=== PATIENT | female | born 1935 | race Caucasian/White ===

== ENCOUNTER 2017-06-06 18:50 | Inpatient (IN) | payer MEDICARE, OTHER ==
[~2017-06-06] VITALS: Ht 162.6 cm; Wt 58.2 kg
[~2017-06-06 18:50] MED LIST: ASPIRIN 81 MG TAB ONE; HEPARIN 5,000 UNIT/0.5 ML VIAL ONE
[2017-06-06 19:42] LABS: ADD SCAN DIFF NO
[2017-06-06 19:43] LABS: BASOPHIL # 0.1 10^3/ul (0.0-0.1); BASOPHILS % 0.7 % (0.0-2.0); EOSINOPHILS # 0.2 10^3/ul (0.0-0.5); EOSINOPHILS % 2.2 % (0.0-7.0); HEMATOCRIT 40.2 % (37.0-47.0); HEMOGLOBIN 13.3 g/dl (12.0-16.0); LYMPHOCYTES # 2.3 10^3/ul (0.8-2.9); LYMPHOCYTES % 27.5 % (15.0-51.0); MEAN CORPUSCULAR HEMOGLOBIN 31.9 pg (29.0-33.0); MEAN CORPUSCULAR HGB CONC 33.1 g/dl (32.0-37.0); MEAN CORPUSCULAR VOLUME 96.4 fl (82.0-101.0); MEAN PLATELET VOLUME 10.4 fl (7.4-10.4); MONOCYTE # 0.7 10^3/ul (0.3-0.9); MONOCYTES % 8.8 % (0.0-11.0); NEUTROPHIL # 4.9 10^3/ul (1.6-7.5); NEUTROPHILS % 60.3 % (39.0-77.0); PLATELET COUNT 220 10^3/UL (140-415); RED BLOOD COUNT 4.17 10^6/ul (4.20-5.40); RED CELL DISTRIBUTION WIDTH 12.5 % (11.5-14.5); WHITE BLOOD COUNT 8.2 10^3/ul (4.8-10.8)
[2017-06-06] MEDS: NITROGLYCERIN (SL) 0.4 MG TAB SL PRN ×2 (19:45→20:17)
[2017-06-06 20:01] LABS: INR 1.08; PT RATIO 1.1
[2017-06-06 20:02] LABS: PARTIAL THROMBOPLASTIN TIME 35.8 Sec (25.0-35.0)
[2017-06-06 20:05] LABS: ANION GAP 12 (8-16); BLOOD UREA NITROGEN 20 mg/dl (7-20); CALCIUM 9.4 mg/dl (8.4-10.2); CARBON DIOXIDE 28 mmol/L (21-31); CHLORIDE 99 mmol/L (97-110); GLUCOSE 105 mg/dl (70-220); SODIUM 135 mmol/L (135-144)
[2017-06-06 20:18] LABS: TROPONIN-I < 0.012 ng/ml (0.00-0.12)
--- NOTE | 2017-06-06 20:19 | ERA ---
ER Documentation Chief Complaint Date/Time DATE: 06/06/17 TIME: 20:17 Chief Complaint SIMI WAYNE, nonradiating CP from home,received 1 spray nitro in the field HPI This is an 81-year-old female who presents to the emergency room for evaluation of chest pain. The patient states that she has had chest pain on and off for the past 2 days. She states it is in the center of her chest with no radiation. The patient did receive 1 spray of nitroglycerin sublingual in the field with mild relief of her symptoms. She does say she has high blood pressure, and high cholesterol and is still. She denies any relieving factors for her pain and came to the ER for evaluation. ROS All systems reviewed and are negative except as per history of present illness. Allergies Allergies: Coded Allergies: Iodine and Iodide Containing Produc (Verified Allergy, Unknown, 06/06/17) NSAIDS (Non-Steroidal Anti-Inflamma (Verified Allergy, Unknown, 11/07/07) Penicillins (Verified Allergy, Unknown, 11/07/07) Sulfa (Sulfonamide Antibiotics) (Verified Allergy, Unknown, 11/07/07) aspirin (Verified Allergy, Unknown, 06/06/17) cyclobenzaprine (Verified Allergy, Unknown, 11/07/07) ibuprofen (Verified Allergy, Unknown, 11/07/07) PMhx/Soc History of Surgery: Yes (BACK 2006,) Anesthesia Reaction: No Hx Neurological Disorder: No Hx Respiratory Disorders: No Hx Cardiac Disorders: Yes (HTN) Hx Psychiatric Problems: No Hx Miscellaneous Medical Probl: No Hx Alcohol Use: No Hx Substance Use: No Hx Tobacco Use: Yes (1 PACK AND HALF A DAY) Smoking Status: Current every day smoker Physical Exam Vitals Vital Signs Date Time Temp Pulse Resp B/P Pulse Ox O2 Delivery O2 Flow Rate FiO2 06/06/17 19:59 Nasal Cannula 2 06/06/17 19:59 18 152/82 97 Nasal Cannula 2.0 06/06/17 18:57 97.7 69 18 139/77 95 Physical Exam INITIAL VITAL SIGNS: Reviewed by me GENERAL: The patient is well developed and appropriate for usual state of health in no apparent distress HEENT: Pupils equal, round, and reactive to light. EOMI. There is no scleral icterus. NECK: C-spine is soft and supple, there is no meningismus. There is no cervical lymphadenopathy. LUNGS: Clear to auscultation bilaterally. There are no rales, wheezes or rhonchi. HEART: Regular rate and rhythm, no murmurs, clicks, rubs or gallops. ABDOMEN: Soft, non-tender, non-distended. There are bowel sounds in all four quadrants. No rebound or guarding. EXTREMITIES: There is no peripheral cyanosis or edema. No focal swelling or erythema. NEUROLOGICAL: The patient moves all four extremities with 5/5 strength. Cranial nerves II - XII are intact. Normal gait. Alert and oriented SKIN: There is no apparent rash or petechiae. HEME/LYMPHATIC: There is no evidence of excessive bruising or lymphedema. PSYCHIATRIC: The patient does not appear anxious or depressed. Result Diagram: 06/06/17192906/06/171929 Results 24 hrs Laboratory Tests Test 06/06/17 19:30 White Blood Count 8.210^3/ul Red Blood Count 4.1710^6/ul Hemoglobin 13.3g/dl Hematocrit 40.2% Mean Corpuscular Volume 96.4fl Mean Corpuscular Hemoglobin 31.9pg Mean Corpuscular Hemoglobin Concent 33.1g/dl Red Cell Distribution Width 12.5% Platelet Count 45790^3/UL Mean Platelet Volume 10.4fl Neutrophils % 60.3% Lymphocytes % 27.5% Monocytes % 8.8% Eosinophils % 2.2% Basophils % 0.7% Nucleated Red Blood Cells % 0.0/100WBC Neutrophils # 4.910^3/ul Lymphocytes # 2.310^3/ul Monocytes # 0.710^3/ul Eosinophils # 0.210^3/ul Basophils # 0.110^3/ul Nucleated Red Blood Cells # 0.010^3/ul Prothrombin Time 14.0Sec Prothrombin Time Ratio 1.1 INR International Normalized Ratio 1.08 Activated Partial Thromboplast Time 35.8Sec Sodium Level 135mmol/L Potassium Level 4.0mmol/L Chloride Level 99mmol/L Carbon Dioxide Level 28mmol/L Anion Gap 12 Blood Urea Nitrogen 20mg/dl Creatinine 0.70mg/dl Glucose Level 105mg/dl Calcium Level 9.4mg/dl Troponin I Pending Current Medications Medications (Trade) Dose Ordered Sig/Ameena Route PRN Reason Start Time Stop Time Status Last Admin Dose Admin Nitroglycerin (Nitroglycerin (Sl Tab) 0.4 Mg) 1 tab Q5M UP TO 3 DOSES PRN SL CHEST PAIN 06/06/17 19:30 06/06/17 19:45 Procedures/MDM EKG: Rate/Rhythm: [Normal Sinus Rhythm] QRS, ST, T-waves: [No changes consistent w/ acute ischemia] Impression: [No evidence of ischemia or arrhythmia] EKG: #2 Rate/Rhythm: [Normal Sinus Rhythm] QRS, ST, T-waves: [No changes consistent w/ acute ischemia] Impression: [No evidence of ischemia or arrhythmia] Chest X-ray 1V Interpreted by me: Soft Tissue: No acute abnormalities Bones: No acute abnormalities Mediastinum/Cardiac Silhouette/Lungs: [No acute abnormalities] This 81-year-old female presents to the ER for evaluation of chest pain. When I evaluated this patient she was hemodynamically stable, not hypoxic. I did obtain lab work including an EKG and a troponin. Chest x-ray is clear. First troponin is negative. Given this patient's age and risk factors she will be placed in for admission at this time for serial troponins and possible stress test. The patient will be admitted under the care of panel physician Dr. Lester. Smoking Cessation Therapy: Pt. was lectured for greater than 3 minutes on the health risks of continued smoking and the benefits of cessation. Departure Diagnosis: Primary Impression: Chest pain Additional Impression: Tobacco abuse Condition: Stable JESUSERA ALCANTARA Jun 06, 2017 20:19
--- NOTE | 2017-06-06 20:22 | RADRPT ---
PROCEDURE: XR Chest. CLINICAL INDICATION: Chest pain. TECHNIQUE: Single frontal view of the chest. COMPARISON: 11/07/2007. FINDINGS: Cardiomegaly. Mild atherosclerotic calcifications in the thoracic aorta. The lungs are clear. No si gns of pleural fluid or pneumothorax are seen. The osseous structures and soft tissues are unremarka ble. IMPRESSION: No evidence for active cardiopulmonary disease. RPTAT: [facility] Physician Moe Date Time Electronically viewed and signed by Baljeet Hale Physician on 06/06/2017 20:22 RS/
[2017-06-06] MEDS ORDERED: morphine 2 MG INJ IV ONE (20:30)
[2017-06-06] MEDS ORDERED: ONDANSETRON 4 MG INJ IV PRN ×2 (20:30→22:00)
[2017-06-06] MEDS ORDERED: ACETAMINOPHEN 325 MG TAB PO PRN ×2 (20:30→22:00)
[2017-06-06] MEDS ORDERED: SOD CHLORIDE 0.9% 1,000 ML IV STA (20:31)
[2017-06-06] MEDS ORDERED: AMLO2.5T78 PO (20:39)
[2017-06-06] MEDS ORDERED: LABE100T3 PO (20:41)
[2017-06-06] MEDS ORDERED: LEVO100T87 PO (20:41)
[2017-06-06] MEDS ORDERED: MIRT15TA5 PO (20:42)
[2017-06-06] MEDS ORDERED: SOD CHLORIDE 0.9% 500 ML ONE (20:56)
[2017-06-06] MEDS ORDERED: IOHEXOL 350MG/ML 50 ML BTL ONE (20:56)
[2017-06-06] MEDS ORDERED: IODIXANOL LOCM 100 ML BTL ONE (20:56)
[2017-06-06] MEDS ORDERED: NITROGLYCERIN (IC) 100 MCG/ML INJ ONE (20:56)
[2017-06-06] MEDS ORDERED: LIDOCAINE 1% (MDV) 20 ML INJ ONE (20:56)
[2017-06-06] MEDS ORDERED: FENTAnyl 50 MCG/ML VIAL ONE (20:56)
[2017-06-06] MEDS ORDERED: MIDAZOLAM 1 MG/ML 2 ML INJ ONE (20:57)
[2017-06-06] MEDS ORDERED: HEPARIN 1000 UNITS/ML 10 ML INJ IV ONE (21:00)
[2017-06-06] MEDS ORDERED: ASPIRIN 325 MG TAB PO ONE (21:00)
[2017-06-06] MEDS ORDERED: METHYLPREDNISOLONE 125 MG INJ ONE (21:06)
[2017-06-06] MEDS ORDERED: DIPHENHYDRAMINE 50 MG INJ ONE (21:06)
--- NOTE | 2017-06-06 21:11 | CONS ---
Date/Time of Note Date/Time of Note DATE: 06/06/17 TIME: 21:08 Assessment/Plan Assessment/Plan Additional Assessment/Plan Inferior ST elevation [place] Hypertension -Patient with evidence of acute inferior ST elevation [place], would proceed with emergent cardiac catheterization. Explained to the patient in agreement to proceed. Consultation Date/Type/Reason Admit Date/Time Type of Consultation: cv Reason for Consultation Chest pain Hx of Present Illness This is an 81-year-old female with past medical history of hypertension and recent CVA last week who presents with severe chest pain today. Patient came to the emergency room initially had borderline ST abnormalities and while in the emergency room chest pain worsen and found to have an ST elevation [place]. Urgent cardiac cath was requested. Currently she is on a 10 chest pain. She denies any shortness of breath or dizziness. There is mention of an iodine allergy but she denies, her issue with aspirin is stomach discomfort. 12 point review of systems was performed with all pertinent positives and negatives mentioned above and also is negative Past Medical History CVA Hypertension Family History Significant Family History: no pertinent family hx Social History Smoking Status: Current every day smoker Exam/Review of Systems Vital Signs Vitals Vital Signs Date Time Temp Pulse Resp B/P Pulse Ox O2 Delivery O2 Flow Rate FiO2 06/06/17 20:30 45 22 91/75 99 Nasal Cannula 2.0 06/06/17 18:57 97.7 Exam Mild to moderate distress, following commands Constitutional: alert, oriented Head: normocephalic Respiratory: clear to auscultation, normal air movement Cardiovascular: other (S1-S2 heard), regular rate and rhythm Gastrointestinal: bowel sounds, non-tender, soft Extremities: other (No edema) Results Result Diagram: 06/06/17192906/06/171929 Results 24 hrs Laboratory Tests Test 06/06/17 19:30 White Blood Count 8.2 Red Blood Count 4.17 L Hemoglobin 13.3 Hematocrit 40.2 Mean Corpuscular Volume 96.4 Mean Corpuscular Hemoglobin 31.9 Mean Corpuscular Hemoglobin Concent 33.1 Red Cell Distribution Width 12.5 Platelet Count 220 Mean Platelet Volume 10.4 Neutrophils % 60.3 Lymphocytes % 27.5 Monocytes % 8.8 Eosinophils % 2.2 Basophils % 0.7 Nucleated Red Blood Cells % 0.0 Neutrophils # 4.9 Lymphocytes # 2.3 Monocytes # 0.7 Eosinophils # 0.2 Basophils # 0.1 Nucleated Red Blood Cells # 0.0 Prothrombin Time 14.0 Prothrombin Time Ratio 1.1 INR International Normalized Ratio 1.08 Activated Partial Thromboplast Time 35.8 H Sodium Level 135 Potassium Level 4.0 Chloride Level 99 Carbon Dioxide Level 28 Anion Gap 12 Blood Urea Nitrogen 20 Creatinine 0.70 Glucose Level 105 Calcium Level 9.4 Troponin I < 0.012 Procedures Procedures ECG demonstrates sinus bradycardia at 46 bpm, inferior ST elevations and anterior ST depressions Bruce Miramontes DO Jun 06, 2017 21:11
[2017-06-06] MEDS ORDERED: BIVALIRUDIN 250MG /NS 50 ML 50 ML IVPB ONE (21:15)
[2017-06-06] MEDS ORDERED: TICAGRELOR 90 MG TABLET ONE (21:33)
[2017-06-06] MEDS ORDERED: niCARdipine 25 MG INJ ONE (21:42)
[2017-06-06] MEDS ORDERED: AL HYDROX/MG HYDROX/SIMETH 30 ML CUP PO PRN (22:00)
[2017-06-06] MEDS ORDERED: SOD CHLORIDE 0.9% 1,000 ML IV SCH (22:00)
--- NOTE | 2017-06-06 22:00 | OPR ---
Date/Time of Note Date/Time of Note DATE: 06/06/17 TIME: 21:54 Operative Report Procedure Date: Jun 06, 2017 Preoperative Diagnosis Myocardial infarction Postoperative Diagnosis Obstructive coronary artery disease Operation Performed Left heart catheterization Right and left coronary angiogram Interpretation and supervision of right and left coronary angiogram Left ventricular pressure measurements PCI of the mid RCA with balloon angioplasty and stenting with a 3.0 x 38 mm Synergy drug-eluting stent Conscious sedation Left radial artery approach Anesthesia: other (Conscious sedation) Estimated Blood Loss: minimal Complications: None Operative\Procedure Findings This is an 81-year-old female presents with ST elevation [place] in inferior leads Findings LV pressure 122/0 with EDP of 10 Aortic blood pressure 123/58 Left main with no segment disease Circumflex medium caliber vessel with mid 20% stenosis and distal 10% diffuse stenosis LAD is a medium caliber vessel with mid 30% stenosis in mid to distal 30% stenosis RCA is a medium caliber vessel and is dominant with a mid 60% stenosis right after that 100% occlusion Description of procedure Patient brought to the [facility] emergently secondary to inferior ST elevation [place]. Left radial access was obtained and a 5/6 Nicar[place]uan sheath was placed. 5 [place] JL 3.5 diagnostic catheter was used to engage the left main and antrum was performed. We next used a 6 [place] JR4 catheter and into the left ventricle and pressure measurements were obtained as well as pullback. We next engage the RCA and demonstrated 100% occlusion. A run through wire was used to cross the lesion. At that point, ST elevations improved significantly. A 2.5 compliant balloon was used for angioplasty at the region of occlusion. When next angioplasty of the mid 60% lesion as well. The multiple lesions were covered with a 3.0 x 38 mm Synergy drug-eluting stent. This was postdilated with a 3.0 noncompliant balloon at high pressure. Cardene and nitroglycerin were given postoperatively. There was an excellent angiography result with STEVO -3 flow and no evidence of dissection. Patient with minimal chest pain at end of procedure. Patient to continue dual antiplatelet therapy for minimum of 1 year to maintain stent patency. Bruce Miramontes DO Jun 06, 2017 22:00
[2017-06-06 22:47] VITALS: PULSE 65
[2017-06-06 23:00] VITALS: BP 155/55; PULSE 60; RESP 14
[2017-06-06 23:41] VITALS: Ht 162.6 cm; Wt 58.2 kg
--- NOTE | 2017-06-06 23:46 | PN ---
Date/Time of Note Date/Time of Note DATE: 06/06/17 TIME: 23:42 Assessment/Plan Lines/Catheters IV Catheter Type (from Nrs): Saline Lock Exam/Review of Systems Vital Signs Vitals Vital Signs Date Time Temp Pulse Resp B/P Pulse Ox O2 Delivery O2 Flow Rate FiO2 06/06/17 20:30 45 22 91/75 99 Nasal Cannula 2.0 06/06/17 18:57 97.7 Results Result Diagram: 06/06/17192906/06/17 193 Results 24 hrs Laboratory Tests Test 06/06/17 19:30 White Blood Count 8.2 Red Blood Count 4.17 L Hemoglobin 13.3 Hematocrit 40.2 Mean Corpuscular Volume 96.4 Mean Corpuscular Hemoglobin 31.9 Mean Corpuscular Hemoglobin Concent 33.1 Red Cell Distribution Width 12.5 Platelet Count 220 Mean Platelet Volume 10.4 Neutrophils % 60.3 Lymphocytes % 27.5 Monocytes % 8.8 Eosinophils % 2.2 Basophils % 0.7 Nucleated Red Blood Cells % 0.0 Neutrophils # 4.9 Lymphocytes # 2.3 Monocytes # 0.7 Eosinophils # 0.2 Basophils # 0.1 Nucleated Red Blood Cells # 0.0 Prothrombin Time 14.0 Prothrombin Time Ratio 1.1 INR International Normalized Ratio 1.08 Activated Partial Thromboplast Time 35.8 H Sodium Level 135 Potassium Level 4.0 Chloride Level 99 Carbon Dioxide Level 28 Anion Gap 12 Blood Urea Nitrogen 20 Creatinine 0.70 Glucose Level 105 Calcium Level 9.4 Troponin I < 0.012 Medications Medications Current Medications Aspirin (Halfprin) 81 mg DAILY PO ; Start 06/07/17 at 09:00 Ticagrelor (Brilinta) 90 mg BID PO ; Start 06/07/17 at 09:00 Acetaminophen (Tylenol Tab) 650 mg Q4H PRN PO NON-CARDIAC PAIN LEVEL 1-3; Start 06/06/17 at 22:00 Al Hydrox/Mg Hydrox/Simethicone (Mag-Al Plus) 30 ml Q4H PRN PO GASTROINTESTINAL UPSET; Start 06/06/17 at 22:00 Ondansetron HCl (Zofran Inj) 4 mg Q4H PRN IV NAUSEA AND/OR VOMITING; Start 06/06 at 22:00 Atorvastatin Calcium 80 mg 80 mg DAILY@21 PO ; Start 06/07/17 at 21:00 Sodium Chloride (NS) 1,000 ml @ 75 mls/hr [id number] IV Last administered on t 23:30; Admin Dose 75 MLS/HR; Start 06/06/17 at 22:00; Stop 06/07/17 at 02:59 ABRAHAM ANTHONY Jun 06, 2017 23:45
[2017-06-07] VITALS (16 sets, daily range): BP systolic 136–185; BP diastolic 65–119; PULSE 6–97; RESP 13–23
--- NOTE | 2017-06-07 00:20 | HP ---
Date/Time of Note Date/Time of Note DATE: 06/07/17 TIME: 00:10 Assessment/Plan VTE Prophylaxis VTE Prophylaxis Intervention: SCD's Lines/Catheters IV Catheter Type (from Nrs): Saline Lock Assessment/Plan Assessment/Plan 1. ST elevation myocardial infarction secondary to occluded RCA status post emergent angiogram and stenting 2. HTN: good control 3. Chronic tobacco abuse s/p cessation counselling 4. Mild confusion r/o chronic dementia 5. ?Recent CVA 6. Hypothyroidism 7. Chronic anxiety d/o PLAN: Continue ICU care and monitoring continue ASA / brillinta / statin / appreciate cardiology's prompt intervention / f/u 2D echo screening labs and serial monitoring Supportive care / resume home meds Further interventions per clinical course Prophylaxis: Pepcid / SCDs HPI/ROS Admit Date/Time Admit Date/Time 06/07/17 Hx of Present Illness 81-year-old female who was brought in by ambulance because of chest pain. Initially she was to be admitted to telemetry floor, but she became bradycardic in the emergency room and actually EKG converted to an ST elevation myocardial infarction which resulted in a code STEMI been activated and patient emergently taken to the [facility]. In the car like she was found to have 100% occlusion of the RCA and to successfully stented. She is being monitored post procedure in the intensive care unit. At this time she is alert, she is in a pleasant mood, and reports being completely chest pain-free. The patient's baseline is unknown but she seems to be somewhat pleasantly confused. She is unable to give me full details regarding her presentation to the hospital, but she had mentioned earlier that she had a stroke 4 days ago. When asked about that, the story becomes convoluted and does not quite make sense but it seems she was monitored at [facility]. It does not seem she was actually diagnosed with a stroke but she felt she might have had a stroke, again details are unclear. Otherwise she states she is doing well, denies abdominal pain, denies extremity swelling, denies focal deficits. She also denies headache, denies nausea or vomiting; asking for something to eat. ROS 12 point review if systems was done and pertinent findings are as noted. PMH/Family/Social Past Medical History 1. Hypertension 2. Hypothyroidism 3. Chronic anxiety disorder 4. Questionable previous stroke 5. Probable mild chronic dementia Family History Significant Family History: other (Unobtainable) Social History Smoking Status: Current every day smoker Exam/Review of Systems Vital Signs Vitals Vital Signs Date Time Temp Pulse Resp B/P Pulse Ox O2 Delivery O2 Flow Rate FiO2 06/06/17 20:30 45 22 91/75 99 Nasal Cannula 2.0 06/06/17 18:57 97.7 Exam Constitutional: alert, frail, No distress Psych: confusion, nl mood/affect Head: atraumatic, normocephalic Eyes: PERRL Neck: non-tender, supple, No jvd Respiratory: clear to auscultation, diminished breath sounds Cardiovascular: regular rate and rhythm, No murmurs/extra sounds Gastrointestinal: bowel sounds, non-tender, soft Extremities: No edema Neurological: No focal weakness, No lethargic Skin: No rash or lesions Labs Result Diagram: 06/06/17192906/06/171929 Medications Medications Current Medications Aspirin (Halfprin) 81 mg DAILY PO ; Start 06/07/17 at 09:00 Ticagrelor (Brilinta) 90 mg BID PO ; Start 06/07/17 at 09:00 Acetaminophen (Tylenol Tab) 650 mg Q4H PRN PO NON-CARDIAC PAIN LEVEL 1-3; Start 06/06/17 at 22:00 Al Hydrox/Mg Hydrox/Simethicone (Mag-Al Plus) 30 ml Q4H PRN PO GASTROINTESTINAL UPSET; Start 06/06/17 at 22:00 Ondansetron HCl (Zofran Inj) 4 mg Q4H PRN IV NAUSEA AND/OR VOMITING; Start 06/06 at 22:00 Atorvastatin Calcium 80 mg 80 mg DAILY@21 PO ; Start 06/07/17 at 21:00 Sodium Chloride (NS) 1,000 ml @ 75 mls/hr [id number] IV Last administered on t 23:30; Admin Dose 75 MLS/HR; Start 06/06/17 at 22:00; Stop 06/07/17 at 02:59 Procedures Procedures Laboratory Tests Test 06/06/17 19:30 White Blood Count 8.210^3/ul Red Blood Count 4.1710^6/ul Hemoglobin 13.3g/dl Hematocrit 40.2% Mean Corpuscular Volume 96.4fl Mean Corpuscular Hemoglobin 31.9pg Mean Corpuscular Hemoglobin Concent 33.1g/dl Red Cell Distribution Width 12.5% Platelet Count 19033^3/UL Mean Platelet Volume 10.4fl Neutrophils % 60.3% Lymphocytes % 27.5% Monocytes % 8.8% Eosinophils % 2.2% Basophils % 0.7% Nucleated Red Blood Cells % 0.0/100WBC Neutrophils # 4.910^3/ul Lymphocytes # 2.310^3/ul Monocytes # 0.710^3/ul Eosinophils # 0.210^3/ul Basophils # 0.110^3/ul Nucleated Red Blood Cells # 0.010^3/ul Prothrombin Time 14.0Sec Prothrombin Time Ratio 1.1 INR International Normalized Ratio 1.08 Activated Partial Thromboplast Time 35.8Sec Sodium Level 135mmol/L Potassium Level 4.0mmol/L Chloride Level 99mmol/L Carbon Dioxide Level 28mmol/L Anion Gap 12 Blood Urea Nitrogen 20mg/dl Creatinine 0.70mg/dl Glucose Level 105mg/dl Calcium Level 9.4mg/dl Troponin I < 0.012ng/ml Current Medications Medications (Trade) Dose Ordered Sig/Ameena Route PRN Reason Start Time Stop Time Status Last Admin Dose Admin Nitroglycerin (Nitroglycerin (Sl Tab) 0.4 Mg) 1 tab Q5M UP TO 3 DOSES PRN SL CHEST PAIN 06/06/17 19:30 06/06/17 20:17 1 TAB Ondansetron HCl (Zofran Inj) 4 mg ER BRIDGE PRN IV NAUSEA AND/OR VOMITING 06/06/17 20:30 06/06/17 22:06 DC Acetaminophen (Tylenol Tab) 650 mg ER BRIDGE PRN PO MILD PAIN/FEVER 06/06/17 20:30 06/06/17 22:06 DC Morphine Sulfate 2 mg 2 mg ONCE ONCE IV 06/06/17 20:30 06/06/17 20:31 DC 06/06/17 20:30 2 MG Sodium Chloride (NS) 1,000 ml @ 1,000 mls/hr Q1H STAT IV 06/06/17 20:31 06/06/17 21:30 DC 06/06/17 20:36 1,000 MLS/HR Aspirin (Aspirin) 325 mg ONCE ONCE PO 06/06/17 21:00 06/06/17 21:01 DC 06/06/17 20:38 325 MG Heparin Sodium (Porcine) (Heparin (1000 Units/ml)) 5,000 unit ONCE ONCE IV 06/06/17 21:00 06/06/17 21:01 DC 06/06/17 20:37 5,000 UNIT Lidocaine (Xylocaine 1% (Mdv) 20 ml) 20 ml STK-MED ONCE .ROUTE 06/06/17 20:56 06/06/17 20:57 DC Iohexol (Omnipaque 350mg/ ml) 50 ml STK-MED ONCE .ROUTE 06/06/17 20:56 06/06/17 20:57 DC Iodixanol (Visipaque Locm) 100 ml STK-MED ONCE .ROUTE 06/06/17 20:56 06/06/17 20:57 DC Fentanyl (Sublimaze) 100 mcg STK-MED ONCE .ROUTE 06/06/17 20:56 06/06/17 20:57 DC Nitroglycerin 1000 mcg 1,000 mcg STK-MED ONCE .ROUTE 06/06/17 20:56 06/06/17 20:57 DC Sodium Chloride (NS) 500 ml @ ud STK-MED ONCE .ROUTE 06/06/17 20:56 06/06/17 20:57 DC Midazolam HCl (Versed) 2 mg STK-MED ONCE .ROUTE 06/06/17 20:57 06/06/17 20:58 DC Diphenhydramine HCl (Benadryl) 50 mg STK-MED ONCE .ROUTE 06/06/17 21:06 06/06/17 21:07 DC Methylprednisolone Sodium Succinate 125 mg 125 mg STK-MED ONCE .ROUTE 06/06/17 21:06 06/06/17 21:07 DC Bivalirudin (Angiomax) 50 ml @ ud STK-MED ONCE IVPB 06/06/17 21:15 06/06/17 21:16 DC Ticagrelor (Brilinta) 90 mg STK-MED ONCE .ROUTE 06/06/17 21:33 06/06/17 21:34 DC Nicardipine HCl (Cardene Iv) 25 mg STK-MED ONCE .ROUTE 06/06/17 21:42 06/06/17 21:43 DC Miscellaneous Information (* Miscellaneous Pharmacy Order) Hold all Metformin ... ONCE ONCE XX 06/06/17 22:00 06/06/17 22:06 DC Aspirin (Halfprin) 81 mg DAILY PO 06/07/17 09:00 Ticagrelor (Brilinta) 90 mg BID PO 06/07/17 09:00 Acetaminophen (Tylenol Tab) 650 mg Q4H PRN PO NON-CARDIAC PAIN LEVEL 1-3 06/06/17 22:00 Al Hydrox/Mg Hydrox/Simethicone (Mag-Al Plus) 30 ml Q4H PRN PO GASTROINTESTINAL UPSET 06/06/17 22:00 Ondansetron HCl (Zofran Inj) 4 mg Q4H PRN IV NAUSEA AND/OR VOMITING 06/06/17 22:00 Atorvastatin Calcium 80 mg 80 mg DAILY@21 PO 06/07/17 21:00 Sodium Chloride (NS) 1,000 ml @ 75 mls/hr [id number] IV 06/06/17 22:00 06/07/17 02:59 06/06/17 23:30 75 MLS/HR PROCEDURE: XR Chest. CLINICAL INDICATION: Chest pain. TECHNIQUE: Single frontal view of the chest. COMPARISON: 11/07/2007. FINDINGS: Cardiomegaly. Mild atherosclerotic calcifications in the thoracic aorta. The lungs are clear. No signs of pleural fluid or pneumothorax are seen. The osseous structures and soft tissues are unremarkable. IMPRESSION: No evidence for active cardiopulmonary disease. RPTAT: [facility] Physician Moe Date Time Electronically viewed and signed by Baljeet Hale Physician on 06/06/2017 20:22 RS/ CC: ERA LEE BOLATITO M. Jun 07, 2017 00:19
[2017-06-07] MEDS ORDERED: ONDANSETRON 4 MG INJ IV PRN (00:30)
[2017-06-07] MEDS ORDERED: morphine 2 MG INJ IV PRN (00:30)
[2017-06-07 01:42] LABS: CK-MB 16.6 ng/ml (0.0-2.4)
[2017-06-07 01:52] LABS: TROPONIN-I 2.32 ng/ml (0.00-0.12)
[2017-06-07 06:22] LABS: ADD SCAN DIFF NO
[2017-06-07 06:38] LABS: ABNORMAL IP MESSAGE 1; BASOPHILS % 0.2 % (0.0-2.0); HEMATOCRIT 39.3 % (37.0-47.0); HEMOGLOBIN 12.6 g/dl (12.0-16.0); LYMPHOCYTES # 0.4 10^3/ul (0.8-2.9); LYMPHOCYTES % 7.1 % (15.0-51.0); MEAN CORPUSCULAR HEMOGLOBIN 31.7 pg (29.0-33.0); MEAN CORPUSCULAR HGB CONC 32.1 g/dl (32.0-37.0); MEAN PLATELET VOLUME 10.8 fl (7.4-10.4); MONOCYTE # 0.1 10^3/ul (0.3-0.9); NEUTROPHIL # 5.7 10^3/ul (1.6-7.5); NEUTROPHILS % 91.2 % (39.0-77.0); PLATELET COUNT 214 10^3/UL (140-415); RED BLOOD COUNT 3.97 10^6/ul (4.20-5.40); RED CELL DISTRIBUTION WIDTH 12.3 % (11.5-14.5); WHITE BLOOD COUNT 6.2 10^3/ul (4.8-10.8)
[2017-06-07 06:50] LABS: CALCIUM 8.7 mg/dl (8.4-10.2); CHOL/HDL RATIO 2.5 RATIO; CREATININE 0.65 mg/dl (0.44-1.00); POTASSIUM 4.6 mmol/L (3.5-5.1)
[2017-06-07 08:39] LABS: CK-MB 23.4 ng/ml (0.0-2.4)
[2017-06-07 08:45] LABS: TROPONIN-I 4.94 ng/ml (0.00-0.12)
[2017-06-07] MEDS ORDERED: TICAGRELOR 90 MG TABLET PO SCH (09:00)
[2017-06-07] MEDS ORDERED: ASPIRIN (EC) 81 MG TAB PO SCH (09:00)
[2017-06-07] MEDS ORDERED: FAMOTIDINE 20 MG TAB PO SCH (09:00)
[2017-06-07 10:36] LABS: ADD UMIC NO; UR ASCORBIC ACID NEGATIVE (NEGATIVE); UR BACTERIA FEW /HPF (NONE SEEN); UR BILIRUBIN (Dip) NEGATIVE (NEGATIVE); UR BLOOD (Dip) NEGATIVE (NEGATIVE); UR CLARITY CLEAR (CLEAR); UR COLOR STRAW (YELLOW); UR GLUCOSE (Dip) NEGATIVE (NEGATIVE); UR KETONES (Dip) NEGATIVE (NEGATIVE); UR LEUKOCYTE ESTERASE (Dip) NEGATIVE Leu/ul (NEGATIVE); UR NITRITE (Dip) NEGATIVE (NEGATIVE); UR RBC 1 /HPF (0-5); UR SPECIFIC GRAVITY (Dip) 1.012 (1.003-1.030); UR SQUAMOUS EPITHELIAL CELL FEW /HPF (FEW); UR TOTAL PROTEIN (Dip) NEGATIVE (NEGATIVE); UR UROBILINOGEN (Dip) NEGATIVE (NEGATIVE)
[2017-06-07] MEDS ORDERED: CLOPIDOGREL 75 MG TAB PO ONE (11:00)
[2017-06-07] MEDS ORDERED: METOPROLOL 25 MG TAB PO SCH (11:00)
[2017-06-07] MEDS ORDERED: LOSARTAN 25 MG TAB PO SCH (11:00)
--- NOTE | 2017-06-07 11:00 | RADRPT ---
Echocardiogram Report Patient Name: DEANDRE KEENE Gender: Female Date: 1935 Study Date: 07-Jun-2017 [facility] Operator: Yasmin Best RDCS Location: 105 Ref. Physician: BRUCE MIRAMONTES Quality: Good Procedures: Transthoracic echocardiogram with complete 2D, M-Mode, and doppler examination. Indications: STEMI. 2D/M Mode Doppler Measurement Value Normal Ranges Measurement Value Normal Ranges LVIDd 2D 3.4 3.5 - 5.6 cm AV Peak Sumeet 1.7 m/sec LVIDs 2D 1.6 2.1 - 4.1 cm AV Peak PG 12.0 mmHg LVPWd 2D 1.0 0.6 - 1.1 cm LVOT Peak Sumeet 1.3 m/sec IVSd 2D 1.4 0.6 - 1.1 cm LVOT Peak PG 6.7 mmHg AoR Diam 2D 2.6 2.0 - 3.7 cm MV E Peak Sumeet 0.7 m/sec EDV 2D 46.1 cm3 MV A Peak Sumeet 1.3 m/sec ESV 2D 4.4 cm3 MV E/A 0.6 LA Dimen 2D 2.4 2.3 - 4.0 cm MV Decel Time 204 msec MV Decel Dare 4 MV E/A 0.6 TR Peak Sumeet 2.6 m/sec TR Peak PG 27.4 mmHg RVSP 30.0 mmHg Findings Left Ventricle: Normal left ventricular systolic function. Normal left ventricular cavity size. Moderate asymmetric septal hypertrophy. Ejection fraction is visually estimated at 65 %. Tissue Doppler/Mitral Doppler indices are consistent with impaired relaxation (Stage I diastolic dysfunction). Right Ventricle: Normal right ventricular size. Normal right ventricular systolic function. Left Atrium: The left atrium is normal in size. Right Atrium: The right atrium is normal in size. Mitral Valve: Normal appearance and function of the mitral valve with trace physiologic regurgitation. Aortic Valve: No significant aortic stenosis or insufficiency. Aortic cusps appear mildly calcified. Tricuspid Valve: Normal appearance of the tricuspid valve. Estimated peak PA systolic pressure 30 mmHg. There is trace tricuspid regurgitation. Pulmonic Valve: Normal pulmonic valve appearance. There is trace pulmonic regurgitation. Pericardium: Normal pericardium with no significant pericardial effusion. Aorta: Normal aortic root. IVC: Normal size and normal respiratory collapse consistent with normal right atrial pressure. Conclusions Normal left ventricular systolic function. Normal left ventricular cavity size. Moderate asymmetric septal hypertrophy. Ejection fraction is visually estimated at 65 %. Tissue Doppler/Mitral Doppler indices are consistent with impaired relaxation (Stage I diastolic dysfunction). Normal right ventricular size. Normal right ventricular systolic function. The left atrium is normal in size. The right atrium is normal in size. No significant valvular stenosis or regurgitation seen. Normal pericardium with no significant pericardial effusion. Electronically Signed By: Bruce Miramontes 07-Jun-2017 10:58:50 -0700 Patient Name: DEANDRE KEENE Study Date: 07-Jun-2017 [id number]
--- NOTE | 2017-06-07 11:06 | CONS ---
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 When I discussed with her the importance of it, she tells me "stop bullying me and rubbing my nose and it". I discussed with her extensively in a calm manner the importance of medication compliance given her recent heart attack and need for stent patency to prevent further myocardial infarction. I did also contact patient's primary physician Dr. Kuhn. In discussion with her primary physician, patient with known history of noncompliance with medications. We did discuss the patient unlikely to be compliant with twice daily medications especially Brilinta. I will thus load her with Plavix and switch her to Plavix. Would continue dual antiplatelet therapy for minimum of 1 year to maintain stent patency, statin therapy, will start Lopressor and ARB for blood pressure control. Continue telemetry monitoring. Patient with ecchymosis left wrist and in discussion with staff, patient was noncompliant with movement restriction of left wrist access site. + 2 radial pulse and no hematoma felt. Consultation Date/Type/Reason Admit Date/Time Jun 06, 2017 at 23:01 Initial Consult Date Type of Consultation: cv 24 HR Interval Summary Free Text/Dictation Patient denies any chest pain or shortness of breath. In discussion with nursing staff, refusing multiple medications Exam/Review of Systems Vital Signs Vitals Vital Signs Date Time Temp Pulse Resp B/P Pulse Ox O2 Delivery O2 Flow Rate FiO2 06/07/17 10:45 98.0 79 18 185/86 98 06/07/17 09:00 Nasal Cannula 2.0 06/07/17 06:25 27 Intake and Output 06/06/17 06/06/17 06/07/17 15:00 23:00 07:00 Intake Total 120 ml Balance 120 ml Exam At times becomes upset during discussion Constitutional: alert, frail, oriented Head: normocephalic Neck: supple Respiratory: clear to auscultation, normal air movement Cardiovascular: other, regular rate and rhythm Gastrointestinal: bowel sounds, non-tender, soft Extremities: other (No edema, left wrist with ecchymosis no hematoma, +2 radial pulse) Results Result Diagram: 06/07/17 0538 06/07/17 0538 Results 24 hrs Laboratory Tests Test 06/06/17 19:30 06/07/17 01:10 06/07/17 05:38 06/07/17 07:45 White Blood Count 8.2 6.2 # Red Blood Count 4.17 L 3.97 L Hemoglobin 13.3 12.6 Hematocrit 40.2 39.3 Mean Corpuscular Volume 96.4 99.0 Mean Corpuscular Hemoglobin 31.9 31.7 Mean Corpuscular Hemoglobin Concent 33.1 32.1 Red Cell Distribution Width 12.5 12.3 Platelet Count 220 214 Mean Platelet Volume 10.4 10.8 H Neutrophils % 60.3 91.2 H Lymphocytes % 27.5 7.1 L Monocytes % 8.8 1.0 Eosinophils % 2.2 0.0 Basophils % 0.7 0.2 Nucleated Red Blood Cells % 0.0 0.0 Neutrophils # 4.9 5.7 Lymphocytes # 2.3 0.4 L Monocytes # 0.7 0.1 L Eosinophils # 0.2 0.0 Basophils # 0.1 0.0 Nucleated Red Blood Cells # 0.0 0.0 Prothrombin Time 14.0 Prothrombin Time Ratio 1.1 INR International Normalized Ratio 1.08 Activated Partial Thromboplast Time 35.8 H Sodium Level 135 138 Potassium Level 4.0 4.6 Chloride Level 99 101 Carbon Dioxide Level 28 28 Anion Gap 12 14 Blood Urea Nitrogen 20 18 Creatinine 0.70 0.65 Glucose Level 105 156 Calcium Level 9.4 8.7 Troponin I < 0.012 2.320 *H 4.940 *H Creatine Kinase 206 H 234 H Creatine Kinase Index 8.1 10.0 Creatinine Kinase MB (Mass) 16.60 H 23.40 H Triglycerides Level 72 Cholesterol Level 183 LDL Cholesterol, Calculated 96 HDL Cholesterol 73 Cholesterol/HDL Ratio 2.5 Thyroid Stimulating Hormone (TSH) 0.948 Test 06/07/17 09:00 Urine Color STRAW Urine Clarity CLEAR Urine pH 7.0 Urine Specific Lando 1.012 Urine Ketones NEGATIVE Urine Nitrite NEGATIVE Urine Bilirubin NEGATIVE Urine Urobilinogen NEGATIVE Urine Leukocyte Esterase NEGATIVE Urine Microscopic RBC 1 Urine Microscopic WBC 1 Urine Squamous Epithelial Cells FEW Urine Bacteria FEW A Urine Hemoglobin NEGATIVE Urine Glucose NEGATIVE Urine Total Protein NEGATIVE Medications Medications Current Medications Aspirin (Halfprin) 81 mg DAILY PO Last administered on 06/07/17 08:26; Admin Dose 81 MG; Start 06/07/17 at 09:00 Ticagrelor (Brilinta) 90 mg BID PO Last administered on 06/07/17 08:31; Admin Dose 90 MG; Start 06/07/17 at 09:00 Acetaminophen (Tylenol Tab) 650 mg Q4H PRN PO NON-CARDIAC PAIN LEVEL 1-3; Start 06/06/17 at 22:00 Al Hydrox/Mg Hydrox/Simethicone (Mag-Al Plus) 30 ml Q4H PRN PO GASTROINTESTINAL UPSET; Start 06/06/17 at 22:00 Ondansetron HCl (Zofran Inj) 4 mg Q4H PRN IV NAUSEA AND/OR VOMITING Last administered on 06/07/17 04:33; Admin Dose 4 MG; Start 06/06/17 at 22:00 Atorvastatin Calcium (Lipitor) 80 mg DAILY@21 PO ; Start 06/07/17 at 21:00 Famotidine (Pepcid) 20 mg BID PO Last administered on 06/07/17 08:26; Admin Dose 20 MG; Start 06/07/17 at 09:00 Ondansetron HCl (Zofran Inj) 4 mg Q6H PRN IV NAUSEA AND/OR VOMITING; Start 06/07 at 00:30 Morphine Sulfate (morphine) 1 mg Q4H PRN IV pain; Start 06/07/17 at 00:30 Bruce Miramontes DO Jun 07, 2017 11:06
[2017-06-07] MEDS ORDERED: ALPRAZOLAM 0.5 MG TAB PO PRN (12:00)
[2017-06-07] MEDS ORDERED: hydrALAzine 20 MG INJ IV PRN (14:00)
--- NOTE | 2017-06-07 16:56 | RADRPT ---
Vent Rate: 71 bpm RR Interval: 0 msec ID Interval: 160 msec QRS Duration: 82 msec QT Interval: 390 msec QTC Interval: 423 msec P-R-T Chandler: 61 - 13 - 13 degrees Normal sinus rhythm Cannot rule out Anterior infarct , age undetermined Abnormal ECG Electronically Signed By: Joe Angel [id number]
[2017-06-07] MEDS ORDERED: ATORVASTATIN 80 MG TAB PO SCH (21:00)
[2017-06-08] MEDS ORDERED: CLOPIDOGREL 75 MG TAB PO SCH (09:00)
--- NOTE | 2017-06-08 14:34 | DS ---
Date/Time of Note Date/Time of Note DATE: 06/08/17 TIME: 14:29 Discharge Summary Admission/Discharge Info Admit Date/Time Jun 06, 2017 at 23:01 Discharge Date/Time Jun 07, 2017 at 18:45 Discharge Diagnosis Patient left AMA 1. Inferior ST elevation PA status post drug-eluting stenting to RCA 2. Hypertension 3. Medication noncompliance 4. Anxiety Patient Condition: Fair Hospital Course Patient is a 81-year-old female presented with inferior ST elevation PA who had a drug-eluting stent placed in the RCA, patient had preserved EF. Patient was anxious on the day she left AMA, she was explained that it is unsafe for her to go home that she needs to be discharged cardiac meds including aspirin and Plavix considering that she just had a stent placed. Patient was very upset and anxious but was alert and oriented and understood the ramifications of her decision to leave, patient did have caregivers with her stated stated that will they will be with her, cardiology was reportedly made aware of her decision to leave AMA. Home Meds Reported Medications Mirtazapine* (Mirtazapine*) 15 Mg Tablet, 15 MG PO HS, TAB 06/06/17 Labetalol Hcl* (Labetalol Hcl*) 100 Mg Tablet, 100 MG PO BID, TAB TAKE DIRRECTED 06/06/17 Levothyroxine Sodium* (Levothyroxine Sodium*) 100 Mcg Tablet, 100 MCG PO BEFORE BREAKFAST, #30 TAB 06/06/17 Amlodipine Besylate* (Amlodipine Besylate*) 2.5 Mg Tablet, 2.5 MG PO QAM, #30 TAB 06/06/17 Follow-up Plan No follow-up instructions given to patient as she left AMA Primary Care Provider Tomas Kuhn Time spent on discharge: < 30 minutes JALIL ESCALANTE Jun 08, 2017 14:33
--- NOTE | 2017-06-09 15:14 | EN ---
Date/Time of Note Date/Time of Note DATE: 06/09/17 TIME: 15:05 Event Note Cardiology Cardiology Event Note Patient unfortunately left AMA on 06/07/2017 in the evening. My colleague Dr. Winston did contact the patient's primary physician Dr. Tomas Kuhn letting him know. I did speak to our patient today and discussed with her again at length the importance of medication compliance especially her aspirin and Plavix to prevent a future heart attack given recent stent placement. After a prolonged discussion and multiple attempts, she finally agreed to give me her pharmacy number to call in the Plavix. I did call a 1 year prescription to her pharmacy at [phone]. I did try telling her multiple times how important compliance with this medication is as well as her aspirin. She tells me she does have a follow-up appointment with her primary physician Dr. Kuhn tomorrow 06/10/2017. I told her if any symptoms of chest pain or shortness of breath in the interim, to come back to the emergency room. I also told her to chart picker her Plavix today. I did update her primary physician. Bruce Miramontes DO Jun 09, 2017 15:13
== END 2017-06-07 18:45 | disposition left against medical advice (07) | DRG 247 ==
LOC: E/R 18:50 → CCL 20:58 → SDS 20:58 → CCL 22:51 → ICU 23:01 → TEL 06-07 10:33
PROVIDERS: ADMIT Family Medicine; ATTEND Family Medicine
PROC: 027034Z Dilation of Coronary Artery, One Artery with Drug-eluting Intraluminal Device, Percutaneous Approach (ICD-10-PCS; principal; 2017-06-06 21:00)
PROC: 4A023N7 Measurement of Cardiac Sampling and Pressure, Left Heart, Percutaneous Approach (ICD-10-PCS; 2017-06-06 21:00)
PROC: B211YZZ Fluoroscopy of Multiple Coronary Arteries using Other Contrast (ICD-10-PCS; 2017-06-06 21:00)
DX: I21.11 ST elevation (STEMI) myocardial infarction involving right coronary artery (principal); I10 Essential (primary) hypertension; R41.0 Disorientation, unspecified; F41.9 Anxiety disorder, unspecified; E03.9 Hypothyroidism, unspecified; R58 Hemorrhage, not elsewhere classified; Z91.14 Patient's other noncompliance with medication regimen
CPT/HCPCS: 71010; 80048; 80061; 81003; 82550; 82553; 84443; 84484; 85025; 85610; 85730; 87081; 92920; 92929; 93005; 93306; 93458; 96374; 96375; C1725; C1769; C1874; C1887; J0360; J0583; J1200; J1644; J2250; J2270; J2405; J2930; J3010; J7030; J7040; Q9967